=== PATIENT | female | born 1945 | race Caucasian/White ===

== ENCOUNTER 2023-06-20 12:54 | Emergency (ER) | payer MEDICARE ==
[~2023-06-20] VITALS: Ht 160 cm; Wt 75.0 kg
[2023-06-20 13:39] VITALS: PULSE 83; RESP 13; O2SAT 97
[2023-06-20 14:31] LABS: Alanine Aminotransferase 10 U/L (7-40); Albumin 3.9 g/dL (3.2-4.8); Alkaline Phosphatase 96 U/L (46-116); Anion Gap 10 (5-15); Aspartate Aminotransferase 33 U/L (13-40); BUN/Creatinine Ratio 12.6 (10.0-20.0); Blood Urea Nitrogen 11 mg/dL (9-23); Calcium 9.1 mg/dL (8.5-10.1); Carbon Dioxide 20 mmol/L (20-30); Chloride 107 mmol/L (98-107); Glucose 118 mg/dL (74-106); Potassium 4.6 mmol/L (3.5-5.1); Sodium 137 mmol/L (136-145)
[2023-06-20 14:32] LABS: Bilirubin, Total 1.8 mg/dL (0.2-1.0)
[2023-06-20 14:35] LABS: Basophils # (auto) 0.1 10 ^3/uL (0-0.2); Eosinophils # (auto) 0.2 10 ^3/uL (0-0.8); Hemoglobin 12.9 g/dL (12.2-16.2); Mean Corpuscular Hgb Conc. 31.9 g/dL (32.0-36.0); Neutrophils # (auto) 5.6 10 ^3/uL (1.6-8.6); Nucleated Red Blood Cells % 0.8 %
[2023-06-20 14:37] LABS: Basophils % (auto) 1.3 % (0.0-2.0); Eosinophils % (auto) 2.6 % (0.0-7.0); Hematocrit 40.2 % (36.0-46.0); Lymphocytes # (auto) 1.8 10 ^3/uL (0.4-5.4); Lymphocytes % (auto) 21.4 % (10.0-50.0); Mean Corpuscular Hemoglobin 32.1 pg (28.0-32.0); Mean Corpuscular Volume 100.5 fL (80.0-100.0); Monocytes # (auto) 0.9 10 ^3/uL (0-1.3); Monocytes % (auto) 10.1 % (0.0-12.0); Neutrophils % (auto) 64.6 % (37.0-80.0); White Blood Cell 8.6 10^3/uL (4.4-10.8)
[2023-06-20 14:43] LABS: Red Cell Distribution Width 24.1 % (11.8-14.3)
[2023-06-20 15:52] LABS: Anisocytosis Slight; Large Platelets FEW; Macrocytosis Slight; Platelet Estimate Adequate; Tear Drop Cells FEW
[2023-06-20 16:56] LABS: INR 1.19 (0.9-1.15); Prothrombin Time 12.4 sec (9.3-11.8)
[2023-06-20] MEDS ORDERED: HYDR-4902 PO (17:15)
[2023-06-20] MEDS ORDERED: ZOFR4T PO (17:15)
[2023-06-20 19:30] VITALS: PULSE 84; RESP 18; TEMP 98.1; O2SAT 98
[2023-06-20 23:37] LABS: Urine Bacteria NONE SEEN /hpf (None Seen); Urine Blood 2+ /uL (Negative); Urine Clarity CLOUDY (Clear); Urine Color Yellow (Yellow); Urine Protein, UAD 2+ (Negative); Urine Specific Gravity 1.019 (1.001-1.035); Urine WBC 2709 /hpf (0 - 5); Urine WBC Clumps PRESENT /hpf (None Seen); Urine pH 5.5 (5.0-8.0)
[2023-06-21 02:00] VITALS: BP 152/95; PULSE 90; RESP 18; O2SAT 93
== END 2023-06-21 02:37 | disposition home or self-care (01) ==
LOC: EDBD 12:54 → ER 12:54
DX: S32.039A Unspecified fracture of third lumbar vertebra, initial encounter for closed fracture (principal); R51.9 Headache, unspecified; I10 Essential (primary) hypertension; I48.91 Unspecified atrial fibrillation; Z86.73 Personal history of transient ischemic attack (TIA), and cerebral infarction without residual deficits; Z79.899 Other long term (current) drug therapy; Z88.5 Allergy status to narcotic agent; Z88.8 Allergy status to other drugs, medicaments and biological substances; W18.39XA Other fall on same level, initial encounter; Y93.89 Activity, other specified; Y92.89 Other specified places as the place of occurrence of the external cause; Y99.8 Other external cause status
CPT/HCPCS: 36415; 70450; 72131; 72192; 80053; 81001; 82550; 84484; 85025; 85610; 93005